=== PATIENT | female | born 1990 | race Asian ===

== ENCOUNTER 2021-08-10 08:28 | Inpatient (IN) | payer BC ==
[~2021-08-10] VITALS: Ht 157.5 cm; Wt 67.7 kg
[2021-08-10] VITALS (8 sets, daily range): BP systolic 103–130; BP diastolic 50–64; PULSE 73–88; TEMP 97.8–98.2
--- NOTE | 2021-08-10 08:30 | NUR ---
0830- Pt arrived on unit via wheelchair escorted by with complaints of contractions. 0833- RN to the bedside. Pt found squatting at the bedside with SROM. Assisted pt to the bed. SVE done 2. 0835- Dr. Davila and additional staff at the bedside for pending delivery. IV started. Pt set up for delivery and pushing with contractions. 0843- of viable female . placed on pt's abdomen. Cords clamped and cut. Care of the given to nursery RN at the bedside. 0846- of placenta. Pitocin started at 333ml/hr per order and protocol. Fundus firm and lochia WNL.
[2021-08-10] MEDS ORDERED: PRENATAL (09:01)
--- NOTE | 2021-08-10 11:15 | NUR ---
Pt up to the bathroom with standby assist and without complications. Pt was able to void. Patricia-care done. Assisted pt to the wheelchair for transfer to 216. Oriented to room, bed and call light with in reach.
[2021-08-10 11:34] LABS: BASO # 0.1 (0.0-0.2); BASO % 0.3 % (0.0-2.0); EOS % 0.2 % (0-4.0); GRAN # 16.6 (1.4-6.5); GRAN % 86.5 % (42.2-75.2); HEMATOCRIT 40.7 % (37.0-47.0); HEMOGLOBIN 13.7 g/dl (12.5-16.0); LYMPH # 1.8 (1.2-3.4); LYMPH % 9.3 % (20.0-51.0); MEAN CELL VOLUME 82 fl (80.0-100.0); MEAN CORPUSCULAR HEMOGLOBIN 28 pg (27.0-31.0); MEAN CORPUSCULAR HGB CONC 34 g/dl (33.0-37.0); MEAN PLATELET VOLUME 10.3 fl (7.4-10.4); MONO # 0.6 (0.1-0.6); MONO % 3.1 % (1.7-9.3); PLATELET COUNT 186 K/mm3 (130-400); RED BLOOD COUNT 4.94 M/mm3 (4.10-5.30); REDCELL DISTRIBUTION WIDTH-CV 15.8 % (11.5-14.5)
[2021-08-11 02:00] VITALS: BP 105/70; PULSE 78; TEMP 97.8
[2021-08-11] MEDS ORDERED: IBU800 M1 PO (08:25)
[2021-08-11 09:25] VITALS: BP 109/67; PULSE 80; TEMP 99.8
== END 2021-08-11 14:00 | disposition home or self-care (01) | DRG 807 ==
LOC: LDRO 08:28 → LDR 08:50 → OB 11:35 → LDRO 08-24 10:26
PROVIDERS: ADMIT Student in an Organized Health Care Education/Training Program
PROC: 10E0XZZ Delivery of Products of Conception, External Approach (ICD-10-PCS; principal; 2021-08-10)
PROC: 0KQM0ZZ Repair Perineum Muscle, Open Approach (ICD-10-PCS; 2021-08-10)
DX: O62.3 Precipitate labor (principal); Z37.0 Single live birth; D18.1 Lymphangioma, any site; O75.89 Other specified complications of labor and delivery; Z3A.38 38 weeks gestation of pregnancy
CPT/HCPCS: J2590